=== PATIENT | female | born 1985 | race Caucasian/White ===

== ENCOUNTER 2022-10-13 19:01 | Emergency (ER) | payer BC ==
[~2022-10-13] VITALS: Ht 172.7 cm; Wt 102.1 kg
[2022-10-13] MEDS ORDERED: FAMOTIDINE 20 MG/2 ML VIAL IV STA (19:27)
[2022-10-13] MEDS ORDERED: DIPHENHYDRAMINE HCL INJ 50 MG/ML VIAL IV ONE (19:30)
[2022-10-13] MEDS ORDERED: SODIUM CHLORIDE 0.9% 1000ML 1,000 ML IV ONE (19:30)
[2022-10-13] MEDS ORDERED: PROMETHAZINE 12.5MG/ NACL 0.9% 12.5 MG/50 ML BAG IV ONE (19:45)
[2022-10-13] MEDS ORDERED: PROMETHAZINE HCL (IM) 25 MG/ML VIAL IM ONE (20:25)
[2022-10-13] MEDS ORDERED: SODIUM CHLORIDE 0.9% 1000ML 1,000 ML ONE (20:25)
[2022-10-13] MEDS ORDERED: FAMOTIDINE 20 MG/2 ML VIAL IV ONE (20:26)
[2022-10-13] MEDS ORDERED: DIPHENHYDRAMINE HCL INJ 50 MG/ML VIAL ONE (20:31)
[2022-10-13] MEDS ORDERED: Morphine 4mg INJECTION 4 MG/ML INJ ONE ×2 (20:37→21:44)
[2022-10-13] MEDS ORDERED: Morphine 2mg Syringe 2 MG/ML SYR IV ONE ×2 (20:45→21:45)
== END 2022-10-13 22:10 | disposition home or self-care (01) ==
LOC: FSED 19:04
DX: R11.2 Nausea with vomiting, unspecified (principal); K29.70 Gastritis, unspecified, without bleeding
CPT/HCPCS: 80053; 81003; 85025; 99283; J1200; J2270; J2550; J7030